=== PATIENT | female | born 1965 | race Caucasian/White ===

== ENCOUNTER 2017-10-21 07:36 | Day surgery (SDC) | payer BC ==
[2017-10-21] MEDS ORDERED: LIDOCAINE 2% MDV (20MG/ML) 20ML VIAL IV ONE (07:37)
[2017-10-21] MEDS ORDERED: PROPOFOL 10 MG/ML VIAL IV ONE (07:37)
--- NOTE | 2017-10-21 12:30 | Operative Note ---
DATE OF SURGERY: 10/21/2017 REFERRING PROVIDER: Andrae Hickman DO PREOPERATIVE DIAGNOSIS: Colon cancer screening, average risk. POSTOPERATIVE DIAGNOSIS: Rectal polyp. Otherwise normal exam. OPERATION: COLONOSCOPY with cold snare polypectomy. Preparation Quality: Good. Estimated Blood Loss: Minimal. Samples Obtained: Rectal polyp. Complications: None apparent. PROCEDURE: After informed consent was obtained, the patient was placed in the left lateral decubitus position in the endoscopy suite, sedated and monitored by the Department of Anesthesia. Digital rectal exam was unremarkable. A well-lubricated PCF-180 colonoscope was inserted into the rectum and advanced to the cecum. The preparation quality was good. The cecum, ileocecal valve, and appendiceal orifice, ascending colon, transverse colon, and descending colon are free from inflammatory changes, mass lesions or polyps. In the rectum, there was a 5-6 mm sessile polyp removed with a cold snare with minimal bleeding noted. The specimen was retrieved without difficulty. J-turn views of the anorectum were unremarkable. The endoscope was straightened, the rectal ampulla deflated and the endoscope was removed. RECOMMENDATIONS: The patient should resume her medications and diet. She will require repeat exam in 3-5 years pending tissue histology. As always, thank you for allowing me to participate in the health care of your patients. CC: Andrae [facility]ickman DO [facility]
== END 2017-10-21 09:30 | disposition home or self-care (01) ==
LOC: HOP 07:36
PROVIDERS: ATTEND Internal Medicine Gastroenterology
DX: Z12.11 Encounter for screening for malignant neoplasm of colon (principal); D12.8 Benign neoplasm of rectum; I10 Essential (primary) hypertension; Z86.73 Personal history of transient ischemic attack (TIA), and cerebral infarction without residual deficits